=== PATIENT | male | born 1970 | race Caucasian/White ===

== ENCOUNTER 2025-04-14 16:03 | Emergency (ER) | payer OTHER, SELFPAY ==
[2025-04-14 16:11] VITALS: BP 145/84
[2025-04-14 16:48] LABS: % Eosinophils 0.1 % (0-6); % Immature Granulocytes 0.1 % (0-0.5); % Lymphocytes 43.8 % (20.5-51.1); % Monocytes 7.5 % (1.7-9.3); % Neutrophils 47.5 % (42.2-75.2); Absolute Basophils 0.1 10^3/uL (0-0.2); Absolute Lymphocytes 3.1 10^3/uL (1.2-3.4); Absolute Monocytes 0.5 10^3/uL (0.1-0.6); Absolute Neutrophils 3.4 10^3/uL (1.4-6.5); Hematocrit 38.8 % (39.0-52.0); Hemoglobin 13.7 g/dL (13.0-18.0); Mean Corp Hgb Conc. 35.3 g/dL (33.0-37.0); Mean Corpuscular Hgb 32.6 pg (27.0-31.0); Mean Corpuscular Volume 92.4 fL (80.0-94.0); Mean Platelet Volume 9.4 fL (7.4-10.4); Nucleated Red Blood Cells % 0 % (-); Platelet Count 297 10^3/uL (130-400); Red Cell Dist. Width 11.4 % (11.5-14.5); White Blood Cell Count 7.1 10^3/uL (4.8-10.8)
[2025-04-14 16:59] LABS: ALT (SGPT) 19 U/L (0-50); AST (SGOT) 19 U/L (17-59); Albumin 4.6 g/dl (3.5-5.0); Alkaline Phosphatase 49 U/L (38-126); Blood Urea Nitrogen 11 mg/dl (9-20); Calcium 9.3 mg/dl (8.4-10.2); Carbon Dioxide 27 mmol/L (22-30); Chloride 107 mmol/L (98-107); Glucose 116 mg/dl (70-99); Sodium 140 mmol/L (135-145); Total Bilirubin 0.5 mg/dl (0.2-1.3); Total Protein 7.2 g/dl (6.3-8.2); eGFR > 60.00
[2025-04-14 17:12] LABS: Troponin I < 0.012 ng/ml
[2025-04-14 18:21] VITALS: BP 150/82
[2025-04-14 19:01] VITALS: BP 131/85
[2025-04-14 20:00] VITALS: BP 138/77
[2025-04-14 21:00] VITALS: BP 171/77
[2025-04-14 22:32] VITALS: BP 147/77
--- NOTE | 2025-04-14 22:33 | ED.GENMED ---
History of Present Illness
General
Chief Complaint: Chest Pain
Source: patient
Exam Limitations: none
Time Seen by Provider: 04/14/25 18:32
History of Present Illness
History of Present Illness:
55-year-old male presents complaining of chest pain intermittent and random over the past 3 days. Its dull ache. Sometimes there is neck pain or arm pain. He recently had a dental infection. He finished a course of antibiotics in mid March of
which she was feeling slightly improved but the symptoms returned and started rating from his mouth down his neck. No fevers no trouble swallowing or breathing. No shortness of breath. No leg swelling or calf pain. No other complaints at this
time
Phy Exam
Physical Exam
Physical Exam:
General: Well-appearing male no acute respiratory distress
HEENT: Normocephalic atraumatic
Heart: Regular rate and rhythm
Lungs: Clear no wheeze
Extremities: No cyanosis or edema
Skin warm no rash
Scores
Heart Score for Chest Pain Patients
STEMI patient?: No
History: Slightly or Non-Suspicious
ECG: Normal
Age: >45 - <65 years
Risk Factors: No Risk Factors
Troponin: </= Normal Limit
Heart Score for Chest Pain Patients: 1
Heart Score Risk: 2.5% MACE over next 6 weeks
Course
Orders/Labs/Results
Orders:
Orders
04/14/25 16:04
Electrocardiogram (*1) Urgent
Reason for Study: Chest Pain
04/14/25 16:05
EKG- Treatment ONCE
04/14/25 16:14
Cardiac Monitoring- Treatment ONCE
O2 Therapy [RESP] Urgent
Titrate/Wean O2 to maintain O2 sat greater than (%): 90
Special Instructions: Maintain sats >/=90%
Pulse Ox/spot Check [RESP] Urgent
Quantity: 1
Special Instructions: ON ROOM AIR
04/14/25 16:31
Complete Blood Count/With Diff Urgent
Comprehensive Metabolic Panel Urgent
Troponin I Urgent
04/14/25 20:25
CR Chest - 2 Views Urgent
Comment:
Reason For Exam: chest pain
Abnormal Lab Results
04/14/25
16:31
RBC 4.20 L 10^6/uL
(4.70-6.10)
Hct 38.8 L %
(39.0-52.0)
MCH 32.6 H pg
(27.0-31.0)
RDW 11.4 L %
(11.5-14.5)
Glucose 116 H mg/dl
(70-99)
04/14/25 16:31
04/14/25 16:31
Vital Signs
Initial and Last Documented VS:
Initial Vital Signs
Temp Pulse Resp BP Pulse Ox
98.1 F 65 18 145/84 97
04/14/25 16:11 04/14/25 16:11 04/14/25 16:11 04/14/25 16:11 04/14/25 16:11
Last Documented Vital Signs
Temp Pulse Resp BP Pulse Ox
98.1 F 50 16 147/77 98
04/14/25 16:11 04/14/25 22:32 04/14/25 22:32 04/14/25 22:32 04/14/25 22:32
MDM/Problems Addressed
Differential Diagnosis Includes:
Chest discomfort neck discomfort all symptoms atypical and intermittent patient looks well nontoxic without any pain on my exam. Question dental abscess versus ACS versus musculoskeletal chest pain
EKG shows sinus rhythm. Troponin undetectable. Given 3 days of discomfort 1 troponin is sufficient. No need for repeat. Chest x-ray clear EKGs reviewed. Symptoms are atypical. I suspect ongoing dental issue. He was prescribed amoxicillin
recently which I advise he start again and take. No indication for admission. Stable for discharge
*Critical Care Note
Total Time (30-74mins, 75-104mins- exclusive of procedures): Not Applicable
ED Attending Note
-
Portions of this chart may have been created with voice recognition software.� Occasional wrong word or��sound alike� substitutions may have occurred due to the inherent limitations of voice recognition software.
Discharge Plan
Departure
Patient Disposition: Home (Routine Discharge)
Date of Disposition: 04/14/25
Time of Disposition: 22:36
Patient with high blood pressure during this ER visit?: No
Discharge Problem:
Chest pain
Instructions: Chest Pain PCP Follow Up
Referrals:
Elizabet Cabrales CRNP [Family Provider]
Activity Restrictions/Additional Instructions:
Take antibiotics as previously prescribed. Return here for worsening symptoms otherwise follow-up with your doctor
Interventions
Interventions:
*Risk Screen - Suicide Last Done: 04/14/25 16:11
*General Assessment Last Done: 04/14/25 17:53
*Neglect/Abuse Screening Last Done: 04/14/25 16:11
*ED- Fall Risk Assessment Last Done: 04/14/25 17:53
*ED COVID-19 Vaccine History Last Done: 04/14/25 17:53
ED- Cardiac Assessment Last Done: 04/14/25 17:53
Discharge Date and Time
Print Language: URDU
== END 2025-04-14 22:48 | disposition home or self-care (01) ==
LOC: EMR 16:03
PROVIDERS: EMERGENCY PHYSICIAN Emergency Medicine; FAMILY PHYSICIAN Family Medicine
DX: R07.89 Other chest pain (principal)
CPT/HCPCS: 99283; 71046; 80053; 84484; 85025; 93005